=== PATIENT | female | born 1975 | race Caucasian/White ===

== ENCOUNTER 2021-12-07 22:57 | Emergency (ER) | payer BC ==
[~2021-12-07] VITALS: Ht 157.5 cm; Wt 59.0 kg
[2021-12-07 23:00] VITALS: BP_SYST 152
--- NOTE | 2021-12-07 23:21 | NUR ---
BIB BLS C/O NUMBNESS AFTER DRINKING VODKA SINCE THIS MORNING TODAY. PT STATED THAT SHE BEEN HAVING TREMORS WELL. PER PT SHE'S BEEN DRINKING EVERYDAY FOR MORE THAN A YEAR NOW. PMH; ALCOHOLISM PT AAOX4, DENIES SOB. NOTED TREMORS ON BUE. DENIES OTHER COMPLAINS AT THIS TIME.
[2021-12-08] MEDS ORDERED: chlordiazePOXIDE HCL 25 MG CAPSULE PO ONE
[2021-12-08 00:24] LABS: BASOPHILS # (AUTO) 0.1 K/uL (0.0-0.2); BASOPHILS % (AUTO) 0.6 % (0.0-2.0); EOSINOPHILS # (AUTO) 0.1 K/uL (0.0-0.4); EOSINOPHILS % (AUTO) 0.8 % (0.0-4.0); HEMATOCRIT 36.8 % (36-48); HEMOGLOBIN 12.5 g/dL (12.0-16.0); LYMPHOCYTES # (AUTO) 1.5 K/uL (1.0-5.5); LYMPHOCYTES % (AUTO) 16.3 % (20.5-51.5); MEAN CORPUSCULAR HEMOGLOBIN 32 pg (27-31); MEAN CORPUSCULAR HGB CONC 34 % (32-36); MEAN CORPUSCULAR VOLUME 93 fL (79.0-98.0); MONOCYTES # (AUTO) 0.6 K/uL (0.0-1.0); MONOCYTES % (AUTO) 6.1 % (1.7-9.3); NEUTROPHILS # (AUTO) 7.2 K/uL (1.8-7.7); NEUTROPHILS % (AUTO) 76.2 % (40.0-70.0); PLATELET COUNT (AUTO) 165 K/uL (130-430); RED BLOOD CELL COUNT(AUTO) 3.95 MIL/uL (4.2-6.2); RED CELL DISTRIBUTION WIDTH 13.7 % (9.0-15.0); WHITE BLOOD COUNT (AUTO) 9.4 K/uL (4.8-10.8)
[2021-12-08 00:45] LABS: ANION GAP 16 (5-15); CALCIUM 8.6 mg/dL (8.4-11.0); CHLORIDE 98 mmol/L (98-107); CREATININE 0.57 mg/dL (0.55-1.30); GLUCOSE 82 mg/dL (70-99); SODIUM SERUM 134 mmol/L (136-145); UREA NITROGEN, BLOOD 18 mg/dL (8-21)
[2021-12-08 00:51] LABS: INR 1.1 (0.8-1.2); PROTHROMBIN TIME 11.4 SECS (9.5-12.5)
[2021-12-08 00:53] LABS: GFR AFRICAN AMERICAN 146 mL/min (>90)
[2021-12-08 01:06] LABS: ALANINE AMINOTRANSFERASE 75 U/L (12-78); ALBUMIN 3.5 g/dL (3.4-4.8); ASPARTATE AMINOTRANSFERASE 30 U/L (10-37); HCG,QUANTITATIVE 0 mIU/ML (0-6); TOTAL BILIRUBIN 0.8 mg/dL (0.0-1.0)
[2021-12-08 01:19] LABS: BILIRUBIN,URINE NEGATIVE (NEGATIVE); CLARITY/URINE CLEAR (CLEAR); COLOR,URINE YELLOW (YELLOW); GLUCOSE,URINE NEGATIVE (NEGATIVE); KETONES,URINE 3+ (NEGATIVE); LEUKOCYTE ESTERASE ,URINE TRACE (NEGATIVE); NITRITE, URINE NEGATIVE (NEGATIVE); PROTEIN URINE NEGATIVE (NEGATIVE); UROBILINOGEN,URINE 0.2 (0.2-1.0)
[2021-12-08 01:20] LABS: BLOOD, URINE TRACE (NEGATIVE)
[2021-12-08 01:24] LABS: RBC,URINE 0-3 /HPF (0-3)
[2021-12-08 01:25] LABS: BACTERIA,URINE RARE /HPF (None Seen)
[2021-12-08 01:30] LABS: ALCOHOL, BLOOD < 3 mg/dL (<10)
[2021-12-08 02:00] LABS: BARBITURATE, URINE NEGATIVE (NEG <=200); URINE AMPHETAMINE NEGATIVE (NEG <=500)
[2021-12-08 02:01] LABS: BENZODIAZEPINE, URINE NEGATIVE (NEG <=150); CANNABINOID, URINE NEGATIVE (NEG <=50); COCAINE, URINE NEGATIVE (NEG <=150); METHAMPHETAMINES SCREEN,URINE NEGATIVE (NEG <=500); OPIATE, URINE NEGATIVE (NEG <=100); PHENCYCLIDINE SCREEN,URINE NEGATIVE (NEG <=25); UR TRICYCLIC ANTIDEPRESSANTS NEGATIVE (NEG <=300); URINE METHADONE NEGATIVE (NEG <=200); URINE OXYCODONE SCREEN NEGATIVE (NEG <=100); URINE PROPOXYPHENE SCREEN NEGATIVE (NEG <=300)
--- NOTE | 2021-12-08 02:18 | NUR ---
Dr Taylor at bedside to re-evaluate pt at this time.
[2021-12-08] MEDS ORDERED: THIAMINE HCL 100 MG/ML VIAL IM ONE (02:30)
[2021-12-08] MEDS ORDERED: POTASSIUM CHLORIDE 20 MEQ TAB.PRT.SR PO ONE (02:30)
[2021-12-08] MEDS ORDERED: MAGNESIUM SULFATE 50 ML IV ONE ×2 (02:30→03:07)
[2021-12-08] MEDS ORDERED: FOLIC ACID 5 MG/ML VIAL IV ONE (02:30)
--- NOTE | 2021-12-08 05:58 | NUR ---
PT AAOX4. Pt came back from bathroom and sts she feels much better now. Cont to monitor at this time. Vitals are WNL.
--- NOTE | 2021-12-08 08:18 | NUR ---
Pt vital signs stable, pt mild tremors to hands. Pt states light headed notified RN primary nurse.
--- NOTE | 2021-12-08 08:47 | NUR ---
[facility] ([facility]) ROOM 5129 BED 2, REPORT [phone]. [facility] [phone] [facility].
[2021-12-08] MEDS ORDERED: NACL 0.9% 2,000 ML IV ONE (10:30)
[2021-12-08] MEDS ORDERED: cefTRIAXone 1 GM in D5W 50 ML IV ONE (10:30)
[2021-12-08] MEDS ORDERED: LORazepam 2 MG/ML VIAL IVP ONE ×2 (10:30→11:45)
--- NOTE | 2021-12-08 10:59 | NUR ---
ADV DR MOBLEY PT WOULD LIKE TO SPK TO
[2021-12-08] MEDS ORDERED: cefTRIAXone 1 GM VIAL ONE (11:54)
--- NOTE | 2021-12-08 12:10 | NUR ---
Patient to be transferred to [facility]. Is being transferred due to higher level of care. Receiving facility has accepting physician and available space. ER physician has signed transfer form. Patient or responsible alliance party has agreed to transfer and signed form. Patient belongings inventoried and will be sent with patient. Copy of nursing notes, lab reports, EKG, Physicians Orders and X-rays to be sent with patient. Report called to at receiving facility. . ambulance service has been called for transfer. ETA is .
[2021-12-08 12:17] VITALS: BP_SYST 140
== END 2021-12-08 12:17 | disposition short-term general hospital (02) ==
LOC: SED 22:57
DX: G45.9 Transient cerebral ischemic attack, unspecified (principal); R53.1 Weakness; F10.239 Alcohol dependence with withdrawal, unspecified; Z88.6 Allergy status to analgesic agent; Z91.041 Radiographic dye allergy status; Z79.899 Other long term (current) drug therapy; Z20.822 Contact with and (suspected) exposure to COVID-19; Y90.6 Blood alcohol level of 120-199 mg/100 ml
CPT/HCPCS: 99285; 87426; 80307; 80053; 82550; 84702; 83735; 85025; 85610; 85730; 87040; 84484; 36415; 83605; 84132; 81000; 70450; 96365; 96361; 96366; 96375; 72125; 76376; 96376; 96372; G0482; J0696; J3490; J2060; J3475; J3411; J7030; 93005